=== PATIENT | female | born 1940 | race Caucasian/White ===

== ENCOUNTER → 2017-01-03 | Outpatient (CLI) | payer MEDICARE, BC ==
[~2017-01-03] MED LIST: CALCIUM1 TAB.CHEW PO; LEVOXYL50 MC1 PO; LORTAB 5-325 M1 EACH PO; MEDROL4 MG/DOSE- PO; SIMVASTATIN10 MG PO; TOPROL XL50 MG PO; VASERETIC 10-251 TAB PO
--- NOTE | ~2017-01-03 | MY11 ---
[facility] A Service of [facility] RADIOLOGY TEXT RESULTS PATIENT: PARK ORTEGA LOCATION: [facility] : 41 UNIT #: [id number] AGE: [address]: Socrates Balderrama MD SEX: F ORDER DR: [id number] [facility] [address] [place], [place] [address] [id number] O MR#: [id number] Acc #: [id number] NAME: PARK ORTEGA. : 1940 SEX: F STUDY DATE/TIME: 01/03/2017 9:25 UNIT: [facility] ROOM: STUDY DESCRIPTION: MY Mammogram Screening Dig Surendra Attending Physician: Socrates Balderrama M.D. Ordering Physician: Socrates Balderrama M.D. Primary Care Physician: Socrates Balderrama M.D. MEDICAL IMAGING REPORT This report is preliminary unless electronic signature is present EXAM Bilateral digital screening mammogram with CAD. COMPARISON November 04, 2015, July 30, 2014, February 29, 2012, February 25, 2011, and September 02, 2009. INDICATIONS Breast cancer screening. 76-year-old female who reports a possible pimple in the upper inner quadrant of the left breast. She denies a personal or family history of breast cancer. FINDINGS There are scattered fibroglandular densities. There is a circular marker at the 10 o'clock position of the posterior third of left breast. This is new from comparison. There is an associated asymmetry on the MLO view which does not persist on CC projection, most consistent with a new skin lesion. There are no suspicious findings in either breast. IMPRESSION No mammographic evidence of malignancy in either breast. There is an apparent new skin lesion at the 10 o'clock posterior third of the left breast. Clinical correlation is recommended. If this is a suspicious skin lesion, then further evaluation with dermal biopsy would be recommended. Patients over the age of 40 are entered into a reminder system with target due date for the next mammogram. A result letter will also be sent to the patient. BIRADS: 2 Benign finding. [facility] A Service of [facility] RADIOLOGY TEXT RESULTS PATIENT: PARK ORTEGA LOCATION: [facility] : 41 UNIT #: [id number] AGE: [address]: Socrates Balderrama MD SEX: F ORDER DR: Dictated by... Gareth Galeas M.D. THIS IS AN ELECTRONICALLY VERIFIED REPORT Gareth Galeas M.D. at 01/03/2017 8:52 PM ALEN/chloé TD: 01/03/2017 13:31 JOB #: [id number] MEDICAL IMAGING REPORT COPY
== END | disposition home or self-care (01) ==
LOC: CWCC 09:05
DX: Z12.31 Encounter for screening mammogram for malignant neoplasm of breast (principal); L98.9 Disorder of the skin and subcutaneous tissue, unspecified
CPT/HCPCS: G0202

== ENCOUNTER → 2017-05-01 | Outpatient (CLI) | payer MEDICARE, BC ==
--- NOTE | ~2017-05-01 | BD1 ---
[facility] A Service of [facility] & [facility] RADIOLOGY TEXT RESULTS PATIENT: PARK ORTEGA LOCATION: [facility] : 41 UNIT #: [id number] AGE: [address]: Socrates Balderrama MD SEX: F ORDER DR: [id number] [address] [address] [id number] O MR#: [id number] Acc #: [id number] NAME: PARK ORTEGA : 1940 SEX: F STUDY DATE/TIME: 05/01/2017 10:35 UNIT: [facility] ROOM: STUDY DESCRIPTION: Dexa Bone Dens 1+ Site Attending Physician: Socrates Balderrama M.D. Referring Physician: Socrates Balderrama M.D. Ordering Physician: Socrates Balderrama M.D. Primary Care Physician: oScrates Balderrama M.D. MEDICAL IMAGING REPORT This report is preliminary unless electronic signature is present. EXAM Bone density spine/hip 05/01/2017 HISTORY Screening. On levothyroxine. Prior smoker 4-5 years. TECHNIQUE Bone mineral density scanning performed upper four lumbar vertebral segments and both proximal femurs in 76.5-year-old, 159 pound female. COMPARISON No comparisons FINDINGS L1-l4 total bone mineral density 1.219 g/cm2 for a T score 0.3 standard deviations above the mean for reference population normal young individuals and Z score 1.8 standard deviations above the mean for age-match population. Left femur: Total bone mineral density is 0.948 g/cm2 for a T score 0.5 standard deviation above the mean for reference popular normal young individuals and Z score 1.1 standard deviation above the mean for age-match population. In the left femoral neck specifically, the bone mineral density is 0.901 g/cm2 for a T score 1.0 standard deviation below mean for reference population normal young individuals and Z-score 0.8 standard deviations above the mean for age-match population. In the proximal right femur, the total bone mineral density is 0.905 g/cm2 for a T score 0.8 standard deviations below mean for reference population [facility] A Service of [facility] & [facility] RADIOLOGY TEXT RESULTS PATIENT: PARK ORTEGA LOCATION: [facility] : 41 UNIT #: [id number] AGE: [address]: Socrates Balderrama MD SEX: F ORDER DR: normal young individuals and Z score 0.8 standard deviations above the mean for an age-match population. In the right femoral neck specifically, the bone mineral density is 0.897 g/cm2 for a T score of 1.0 standard deviation below mean for reference popular normal young individuals and Z score 0.8 standard deviations above the mean for age-match population. IMPRESSION Normal bone mineral density upper four lumbar vertebral segments and both proximal femurs. Please correlate with the patient's clinical status. Continued surveillance is recommended. Dictated by... Josafat Buck M.D. THIS IS AN ELECTRONICALLY VERIFIED REPORT Josafat Buck M.D. at 05/03/2017 11:34 AM MIS/beau TD: 05/02/2017 07:24 JOB #: [id number] MEDICAL IMAGING REPORT Page 1 of 1
== END | disposition home or self-care (01) ==
LOC: SRAD 10:06
DX: Z13.820 Encounter for screening for osteoporosis (principal); Z78.0 Asymptomatic menopausal state
CPT/HCPCS: 77080